=== PATIENT | female | born 1990 | race Caucasian/White ===

== ENCOUNTER → 2020-12-28 | Outpatient (CLI) | payer BC, OTHER ==
[~2020-12-28] MED LIST: HYDR-1067 PO
[2020-12-28 14:27] LABS: BASOPHILS % (AUTO) 1 % (0-1); EOSINOPHILS % (AUTO) 1 % (1-7); LYMPHOCYTES % (AUTO) 30 % (22-44); MD NO; MEAN CORPUSCULAR HEMOGLOBIN 27.1 pg (27.0-34.8); MEAN CORPUSCULAR HGB CONC 32.5 g/dL (32.4-35.8); MEAN PLATELET VOLUME 9.2 fL (7.4-10.4); MONOCYTES % (AUTO) 9 % (2-9); NEUTROPHILS % (AUTO) 59 % (42-75); PLATELET COUNT 176 x10^3/uL (130-400); RED BLOOD COUNT 4.96 x10^6/uL (3.82-5.3); RED CELL DISTRIBUTION WIDTH 13.5 % (9.6-15.2)
[2020-12-28 14:32] LABS: ALANINE AMINOTRANSFERASE 15 U/L (12-78); ALBUMIN 4.2 g/dL (3.4-5.0); ANION GAP 4 mmol/L (5-15); CALCIUM 8.5 mg/dL (8.5-10.1); CHLORIDE 107 mmol/L (98-107); CREATININE 0.58 mg/dL (0.55-1.02)
[2020-12-28 14:33] LABS: MICROSCOPIC NOT IND
[2020-12-28 14:34] LABS: ALKALINE PHOSPHATASE 59 U/L (45-117); BILIRUBIN,TOTAL 0.3 mg/dL (0.2-1.0); TOTAL PROTEIN 7.3 g/dL (6.4-8.2)
== END | disposition home or self-care (01) ==
LOC: STAR 13:06
PROVIDERS: ATTEND Obstetrics & Gynecology Gynecology
DX: Z01.812 Encounter for preprocedural laboratory examination (principal); R10.2 Pelvic and perineal pain; D39.12 Neoplasm of uncertain behavior of left ovary; Z20.822 Contact with and (suspected) exposure to COVID-19
CPT/HCPCS: 36415; 80053; 81003; 85025; U0003

== ENCOUNTER 2021-01-01 05:34 | Day surgery (SDC) | payer BC, OTHER ==
[~2021-01-01] VITALS: Ht 165.1 cm; Wt 59.6 kg
[2021-01-01 06:00] VITALS: BP 105/69
[2021-01-01] MEDS ORDERED: LACTATED RINGERS 1,000 ML IV SCH (06:00)
[2021-01-01] MEDS ORDERED: CHLORHEXIDINE 15 ML UDC PO ONE (06:00)
[2021-01-01] MEDS ORDERED: LIDOCAINE/PF 1%-EPI 1:200K, 30 ML ONE (07:07)
[2021-01-01] MEDS ORDERED: EPINEPHRINE 1 MG/ML, 1ML ONE (07:08)
[2021-01-01] MEDS ORDERED: INDIGO CARMINE 0.8%, 5ML ONE (07:08)
[2021-01-01] MEDS ORDERED: METHYLENE BLUE 50 MG/10 ML AMP ONE (07:08)
[2021-01-01] MEDS ORDERED: LIDOCAINE/PF 1%, 30ML ONE (07:08)
[2021-01-01] MEDS ORDERED: FLUORESCEIN SODIUM 500 MG/5 ML ONE (07:08)
[2021-01-01] MEDS ORDERED: FENTANYL PF 100 MCG/2ML ONE ×2 (07:17→08:41)
[2021-01-01] MEDS ORDERED: MIDAZOLAM 1 MG/ML, 2ML ONE (07:18)
[2021-01-01] MEDS ORDERED: PROPOFOL 10 MG/ML, 20ML ONE (07:19)
[2021-01-01] MEDS ORDERED: ONDANSETRON 2MG/ML, 2ML ONE ×2 (07:20→08:42)
[2021-01-01] MEDS ORDERED: DEXAMETHASONE 4 MG/ML, 1ML ONE (07:20)
[2021-01-01] MEDS ORDERED: ONDANSETRON 2MG/ML, 2ML IVPush PRN (08:00)
[2021-01-01] MEDS ORDERED: OXYcodone 5 MG/5 ML ORAL.SOL UDC PO PRN (08:00)
[2021-01-01] MEDS ORDERED: ACETAMINOPHEN 325 MG TABLET PO PRN (08:00)
[2021-01-01] MEDS ORDERED: MEPERIDINE/PF 25MG/0.5ML IVPush PRN (08:00)
[2021-01-01] MEDS ORDERED: DIPHENHYDRAMINE 50 MG/ML, 1ML IVPush PRN (08:00)
[2021-01-01] MEDS ORDERED: DIAZEPAM 5 MG/ML, 2ML IVPush PRN (08:00)
[2021-01-01] MEDS ORDERED: HYDROmorphone 1 MG/ML, 1ML INJ IVPush PRN (08:00)
[2021-01-01] MEDS ORDERED: PROMETHAZINE 25 MG/ML, 1ML IVPush PRN (08:00)
[2021-01-01] MEDS ORDERED: ROCURONIUM 10MG/ML,5ML ONE (08:07)
[2021-01-01] MEDS ORDERED: GLYCOPYRROLATE 0.2MG/1ML, 5ML ONE (08:09)
[2021-01-01] MEDS ORDERED: NEOSTIGMINE 1 MG/ML, 10ML ONE (08:09)
[2021-01-01] MEDS ORDERED: ACETAMINOPHEN 650 MG/20.3 ML UDC ONE (08:41)
[2021-01-01] MEDS ORDERED: KETOROLAC 30 MG/1 ML ONE (08:41)
[2021-01-01] MEDS ORDERED: OXYcodone 5 MG/5 ML ORAL.SOL UDC ONE (08:42)
[2021-01-01] MEDS: FENTANYL PF 100 MCG/2ML IV PRN ×3 (08:54→09:05)
[2021-01-01] MEDS ORDERED: KETOROLAC 30 MG/1 ML IVPush PRN (09:00)
== END 2021-01-01 11:00 | disposition home or self-care (01) ==
LOC: OUT 05:34
PROVIDERS: ATTEND Obstetrics & Gynecology Gynecology
DX: N80.2 Endometriosis of fallopian tube (principal); N94.19 Other specified dyspareunia; N83.292 Other ovarian cyst, left side; N73.6 Female pelvic peritoneal adhesions (postinfective); Z79.899 Other long term (current) drug therapy; Z72.89 Other problems related to lifestyle; Z90.710 Acquired absence of both cervix and uterus; Z98.890 Other specified postprocedural states
CPT/HCPCS: 58661; 88302; J0171; J1100; J1885; J2250; J2704; J2710; J3010; J7120; J2405; Q9968